=== PATIENT | male | born 1975 | race Caucasian/White ===

== ENCOUNTER 2018-01-19 13:18 | Outpatient (CLI) | payer MEDICARE ==
[~2018-01-19 13:18] MED LIST: Gadobenate Dimeglumine 529 MG/1 ML (20ML VIAL) ONE
--- NOTE | 2018-01-19 15:35 | MRI ---
MRI BRAIN WITH AND WITHOUT CONTRAST 01/19/18 COMPARISON: 05/26/17 HISTORY: Malignant neoplasm of the brain, unspecified. Followup tumor. TECHNIQUE: Brain MRI is performed with and without intravenous gadolinium administration. Multisequential, multi planar imaging is performed. FINDINGS: Stable postsurgical changes involving the right calvarium. There is no evidence of acute hemorrhage o n the axial gradient echo sequence. Stable hemosiderin deposition in the right ortiz radiata and rig ht deep brain matter structures. Stable T2 and FLAIR hypointensity involving the right cerebrum as we ll as the mid brain and vish. No significant sulcal effacement. Minimal, stable right to left anterio r subfalcine herniation. Adequate aeration of the sinuses and mastoid air cells. Calvarium has an appropriate T1 marrow signal intensity. Midline brain parenchymal structures are unr emarkable. No pathologic enhancement of the brain parenchyma. Stable enhancement of the dura underlying the calvarial defect, due to postoperative change. IMPRESSION: Stable exam. No abnormal enhancement. Stable malacic and gliotic changes. POS: [facility]
== END 2018-01-19 13:19 | disposition home or self-care (01) ==
LOC: TBSIIMAG 13:18
PROVIDERS: ATTEND Neurological Surgery
DX: C71.9 Malignant neoplasm of brain, unspecified (principal)
CPT/HCPCS: 70553; A9579

== ENCOUNTER 2018-04-20 13:41 | Outpatient (CLI) | payer MEDICARE ==
--- NOTE | 2018-04-20 16:52 | MRI ---
PRE AND POSTCONTRAST BRAIN MRI 04/20/18 CLINICAL HISTORY: Malignant neoplasm of brain, unspecified, followup. Reference made to 01/19/18 exam. FINDINGS: Redemonstration of prominent signal alteration of the right cerebral hemisphere with an associated pa renchymal defect of the anterior right temporal lobe and right frontoparietal region extending medial ly to the basal ganglia with ex vacuo dilatation of ventricular system. There is linear pachymeningea l enhancement notably overlying the right cerebral convexity again demonstrated. Redemonstration of a bsence of the anterior pole right temporal lobe within the right middle cranial fossa which contains CSF signal with internal septations. No significant midline shift. Signal alteration of the brain aleah m is redemonstrated. No new pathologic intra-axial enhancement. IMPRESSION: Stable postoperative brain MRI, with redemonstration of extensive signal alteration of the cerebral p arenchyma bilaterally, more notable on the right, with associated postoperative encephalomalacia. POS: [facility]
== END 2018-04-20 13:42 | disposition home or self-care (01) ==
LOC: TBSIIMAG 13:41
PROVIDERS: ATTEND Neurological Surgery
DX: C71.9 Malignant neoplasm of brain, unspecified (principal); G93.89 Other specified disorders of brain; Z98.890 Other specified postprocedural states
CPT/HCPCS: 70553; A9579

== ENCOUNTER 2018-12-02 13:52 | Outpatient (CLI) | payer MEDICARE ==
--- NOTE | 2018-12-02 15:43 | MRI ---
MRI BRAIN WITH AND WITHOUT CONTRAST: 12/02/18 COMPARISON: 04/20/18, 06/22/18. HISTORY: Followup exam. Malignant neoplasm of overlapping sites. TECHNIQUE: Brain MRI is performed with and without intravenous gadolinium administration. Multisequential, multi planar imaging is performed. FINDINGS: Stable hemosiderin deposition due to remote surgery. Stable T2 and FLAIR white matter hyperintensities involving the right frontal, right temporal lobes as well as crossing the anterior aspect of the corpus callosum. There is involvement of bilateral [place] as well as the mid brain and vihs. The overall degree of T2 and FLAIR hyperintensity is similar to the previous examination. Stable configuration of the ventricular system. Central arterial flow voids are maintained. Absent restricted diffusion. Adequate aeration of the sinuses and mastoid air cells. Stable dural enhancement along the right frontal and temporal convexities which underlie a stable pos tsurgical calvarial defect. No pathologic enhancement of the brain parenchyma. IMPRESSION: 1. No pathologic enhancement of the brain parenchyma. 2. Stable T2 and FLAIR hyperintensities as described above. POS: [facility]
== END 2018-12-02 13:53 | disposition home or self-care (01) ==
LOC: TBSIIMAG 13:52
PROVIDERS: ATTEND Neurological Surgery
DX: C71.8 Malignant neoplasm of overlapping sites of brain (principal)
CPT/HCPCS: 70553

== ENCOUNTER 2019-03-04 12:54 | Outpatient (CLI) | payer MEDICARE ==
--- NOTE | 2019-03-04 17:11 | MRI ---
Pre and postcontrast enhanced MRI images brain. HISTORY: Patient with known history of astrocytoma. BrainLab study. Comparison made to previous exam from 12/02/2018. Multiplanar multisequence pre and postcontrast enhanced MRI images of the brain demonstrate right mid dle cranial fossa craniotomy. Encephalomalacia changes seen in the right temporal lobe. This area of encephalomalacia extends into the lateral right periventricular region involving the right basal g anglion. These findings are stable and unchanged. Areas of signal abnormality seen on T2-weighted sequences in the deep white matter of the right front al lobe, right periventricular white matter extending to residual components of the right anterior temporal lobe as well as the areas of temporal lobe posterior to the surgical defect and encephalomal acia. Secondary enlargement of the right lateral ventricle seen. Previously noted area of increased T2 signal involving the posterior aspect of the vish as well as th e right cerebral peduncle are less pronounced. No evidence of increasing areas of T2 signal abnormality seen within the white matter. No abnormal areas of intracranial enhancement seen. No definite evidence of obvious areas of the enha ncement seen to suggest enhancing tumor. IMPRESSION: Postsurgical changes white matter changes which are stable or decreased. Transcribed Date/Time: 03/04/2019 5:24 PM
== END 2019-03-04 12:55 | disposition home or self-care (01) ==
LOC: SCSMRI 12:54
PROVIDERS: ATTEND Neurological Surgery
DX: C71.9 Malignant neoplasm of brain, unspecified (principal); R90.89 Other abnormal findings on diagnostic imaging of central nervous system; Z98.890 Other specified postprocedural states
CPT/HCPCS: 70553

== ENCOUNTER 2019-07-12 08:16 | Outpatient (CLI) | payer MEDICARE ==
--- NOTE | 2019-07-12 09:54 | MRI ---
MRI Brain W WO Con: 07/12/2019 12:00 AM CLINICAL HISTORY: History of malignant neoplasm of brain, prior treatment. COMPARISON: 03/04/2019 FINDINGS: Extra axial spaces: Stable in appearance. Acute infarction: None. Ventricular system: Stable enlargement of the right lateral ventricle related to ex vacuo dilatation. Basal cisterns: Stable appearing. Cerebral parenchyma: Persistent asymmetric gliosis of right cerebral hemisphere with superimposed mod erate size region of postsurgical encephalomalacia. Midline shift: Stable mild rightward midline shift due to postsurgical change and volume loss. Cerebellum: Normal. Brainstem: Stable gliosis within the right cerebral peduncle. Paranasal sinuses:Fluid level of left major sphenoid air cell. Scattered paranasal sinus mucosal thic kening Intraaxial Enhancement: None Signal alteration related to right frontoparietal craniotomy. IMPRESSION:Stable postoperative brain MRI
== END 2019-07-12 08:17 | disposition home or self-care (01) ==
LOC: TBSIIMAG 08:16
PROVIDERS: ATTEND Neurological Surgery
DX: C71.9 Malignant neoplasm of brain, unspecified (principal); Z98.890 Other specified postprocedural states
CPT/HCPCS: 70553

== ENCOUNTER 2019-10-18 13:05 | Outpatient (CLI) | payer MEDICARE ==
--- NOTE | 2019-10-18 14:46 | MRI ---
Brain MRI with and without contrast: 10/18/2019 COMPARISON: 07/12/2019 and prior HISTORY: Reevaluate [employer] neoplastic lesion TECHNIQUE: Multiplanar multisequence MR imaging brain obtained with and without contrast FINDINGS: The diffusion weighted imaging demonstrates no evidence for acute infarction. There is a postoperative cavity within the right frontotemporal region centered within the right midd le cranial fossa. There is adjacent gliosis/encephalomalacia with associated enlargement of the right lateral ventricle. These findings are unchanged when compared to the prior exam. The gradient e cho imaging demonstrates linear hemosiderin staining along the medial aspect of the postoperative cavity consistent with stable postoperative change. No midline shift. There is T2/FLAIR hyperintensity involving the subcortical, deep, and periventricular white matter on the right, not significantly changed when compared to the prior study as well. Stable mild increased T2 and STIR signal is seen along the margin of the body of the left lateral ventricle. Imaged paranasal sinuses and mastoid air cells demonstrate normal T2 signal intensity. Arterial flow voids at the axial level of the skull base appear unremarkable on the T2-weighted imagi ng. The postcontrast imaging demonstrates no intra-axial abnormal enhancement to suggest the presence of residual or recurrent tumor. Small linear foci of enhancement within the postoperative cavity are noted, stable when compared to numerous prior examinations, and most likely on the basis of scar and/ or vascular structures. IMPRESSION: Stable postoperative changes consistent with tumor resection. No MR evidence for residual /recurrent tumor. Continued surveillance MRI advised.
[2019-10-18] MEDS ORDERED: Magnevist 469MG/ML 20 ML VIAL ONE (16:38)
== END 2019-10-18 13:06 | disposition home or self-care (01) ==
LOC: TBSIIMAG 13:05
PROVIDERS: ATTEND Neurological Surgery
DX: C71.9 Malignant neoplasm of brain, unspecified (principal); Z98.890 Other specified postprocedural states
CPT/HCPCS: 70553; A9579

== ENCOUNTER 2020-01-17 13:11 | Outpatient (CLI) | payer MEDICARE ==
[~2020-01-17 13:11] MED LIST changes: -Gadobenate Dimeglumine 529 MG/1 ML (20ML VIAL) ONE; +Magnevist 469MG/ML 20 ML VIAL ONE
--- NOTE | 2020-01-17 14:43 | MRI ---
Exam: Brain MRI with and without contrast HISTORY: Brain lab protocol. Brain neoplasm. Status post resection COMPARISON: 10/18/2019, 07/12/2019 FINDINGS: Gradient echo sequence: Stable hemosiderin deposition at the surgical resection site Calvarium: Stable postoperative changes involving the right calvarium. Midline brain parenchyma: Unremarkable Cerebrum:Stable postsurgical changes involving the right temporal and frontal lobe. Stable malacia an d gliosis. Stable T2 and FLAIR white matter hyperintensities. No significant brain parenchymal enhancement. No evidence of an extra-axial recurrence. Enhancement of the overlying dura is unchanged and likely represents postsurgical findings. Stable asymmetric dilatation of the left lateral ventricle. Ventricles: No evidence of hydrocephalus. Sinuses and mastoid air cells: Adequate aeration Diffusion: Central arterial flow is maintained. Absent restricted diffusion. Postcontrast images:No evidence of tumor recurrence. No new enhancement in the operative site. Minima l linear enhancement is felt to represent scar tissue. IMPRESSION: Stable postoperative changes involving the right cerebrum. Transcribed Date/Time: 01/17/2020 2:45 PM
== END 2020-01-17 13:12 | disposition home or self-care (01) ==
LOC: MRI 13:11
PROVIDERS: ATTEND Neurological Surgery
DX: C71.9 Malignant neoplasm of brain, unspecified (principal); Z98.890 Other specified postprocedural states
CPT/HCPCS: 70553; A9579

== ENCOUNTER 2020-05-01 13:27 | Outpatient (CLI) | payer MEDICARE ==
--- NOTE | 2020-05-01 16:39 | MRI ---
MRI BRAIN WITH AND WITHOUT CONTRAST: DATE: 05/01/2020 HISTORY: 44-year-old male follow-up resection of malignant neoplasm of brain unspecified. ICD-10: C 71.9 COMPARISON: 01/17/2020 TECHNIQUE: Multiplanar, multisequence MRI of the brain performed pre- and post-IV injection of gadolinium based contrast agent. FINDINGS: Old right frontotemporal parietal craniotomy changes. Large region of right temporal, adjacent right lateral frontal, and right corpus striatum, encephalom alacia and gliosis. Hemosiderin stain at right corpus striatum. Associated ex vacuo dilation of body, frontal horn, trigone, and temporal horn, of right lateral vent ricle. No obstructive hydrocephalus. No mass effect. Ex vacuo shift of third ventricle to the right. No new intra-axial signal abnormality, new restricted diffusion, new abnormal intra-axial enhancement , or any significant interval overall change. IMPRESSION: 1) sequelae of brain parenchymal tumor resection on right, with large region of encephalomalacia and gliosis. 2) no evidence of recurrent or residual neoplastic tumor. 3) no interval change overall.
== END 2020-05-01 13:28 | disposition home or self-care (01) ==
LOC: TBSIIMAG 13:27
PROVIDERS: ATTEND Neurological Surgery
DX: C71.9 Malignant neoplasm of brain, unspecified (principal); G93.89 Other specified disorders of brain
CPT/HCPCS: 70553

== ENCOUNTER 2020-08-09 07:55 | Outpatient (CLI) | payer MEDICARE ==
--- NOTE | 2020-08-09 11:18 | MRI ---
BRAIN MRI WITH AND WITHOUT CONTRAST: Date: 08/09/2020 COMPARISON: 05/01/2020. HISTORY: Malignant neoplasm, reevaluate brain tumor. TECHNIQUE: Multiplanar, multisequence MR imaging of the brain is provided with and without contrast. FINDINGS: There is evidence of prior right-sided craniotomy. There has been tumor resection centered within the middle cranial fossa/temporal lobe on the right with ex vacuo hydrocephalus of the right lateral imani tricle, a stable finding. There is periventricular subcortical and deep white matter T2 and FLAIR hyp erintensity in the postoperative site extending along the lateral aspect of the right lateral ventric le to the vertex. There is also mild increased T2 and FLAIR signal within the periventricular white m atter adjacent to the anterior and superior body of the left lateral ventricle. The diffusion-weighted imaging demonstrates no evidence for acute infarction. The axial gradient echo imaging is stable, with evidence of linear blooming artifact along the medial margin of the postoperative cavity superiorly suggesting stable blood products. Arterial flow-voids at the axial level of the skull base appear grossly unremarkable on the T2-weighted imaging. The imag ed paranasal sinuses/mastoid air cells demonstrate a grossly unremarkable appearance. Stable postoperative right temporal lobe encephalomalacia present with no mass effect or midline shif t seen on this examination. Aar-ikky-hgrg linear enhancement noted within the postoperative cavity laterally on axial image 63, u nchanged when compared to the prior exam. No areas of new and/or mass-like enhancement noted in the p ostoperative site. IMPRESSION: Stable postoperative changes consistent with prior tumor resection. No interval change when compared to prior examination. POS: [facility]
== END 2020-08-09 07:56 | disposition home or self-care (01) ==
LOC: TBSIIMAG 07:55
PROVIDERS: ATTEND Neurological Surgery
DX: D49.6 Neoplasm of unspecified behavior of brain (principal); Z98.890 Other specified postprocedural states
CPT/HCPCS: 70553

== ENCOUNTER 2021-08-13 13:16 | Outpatient (CLI) | payer MEDICARE | END 2021-08-13 13:17 | disposition home or self-care (01) | LOC: TBSIIMAG 13:16 | PROVIDERS: ATTEND Neurological Surgery | DX: D49.6 Neoplasm of unspecified behavior of brain (principal); Z98.890 Other specified postprocedural states | CPT/HCPCS: 70553; A9579 ==

== ENCOUNTER 2022-05-22 07:34 | Outpatient (CLI) | payer MEDICARE | END 2022-05-22 07:35 | disposition home or self-care (01) | LOC: TBSIIMAG 07:34 | PROVIDERS: ATTEND Neurological Surgery | DX: Z08 Encounter for follow-up examination after completed treatment for malignant neoplasm (principal); Z85.841 Personal history of malignant neoplasm of brain; Z98.890 Other specified postprocedural states | CPT/HCPCS: 70553 ==

== ENCOUNTER 2022-10-30 08:33 | Outpatient (CLI) | payer MEDICARE ==
[2022-10-30] MEDS ORDERED: Magnevist 469MG/ML 20 ML VIAL ONE (15:25)
== END 2022-10-30 08:34 | disposition home or self-care (01) ==
LOC: TBSIIMAG 08:33
PROVIDERS: ATTEND Neurological Surgery
DX: D49.6 Neoplasm of unspecified behavior of brain (principal); Z98.890 Other specified postprocedural states
CPT/HCPCS: 70553; A9579